=== PATIENT | male | born 1950 | race Caucasian/White ===

== ENCOUNTER 2017-07-15 18:55 | Inpatient (IN) | payer MEDICARE, OTHER ==
[2017-07-15] MEDS: ONDANSETRON 4 MG INJ IV (19:18)
[2017-07-15] MEDS: SOD CHLORIDE 0.9% 1,000 ML IV (19:20)
[2017-07-15] MEDS: DILTIAZEM 50 MG INJ IV (19:20)
[2017-07-15 19:35] LABS: ADD MAN DIFF? NO
[2017-07-15 19:37] LABS: WHITE BLOOD COUNT 7.8 10^3/ul (4.8-10.8)
[2017-07-15 19:37] LABS: BASOPHILS % 0.4 % (0.0-2.0); EOSINOPHILS % 0.1 % (0.0-7.0); HEMATOCRIT 35.7 % (42.0-52.0); HEMOGLOBIN 11.2 g/dl (14.0-18.0); LYMPHOCYTES # 0.5 10^3/ul (0.8-2.9); LYMPHOCYTES % 6.4 % (15.0-51.0); MEAN CORPUSCULAR HEMOGLOBIN 28.6 pg (29.0-33.0); MEAN CORPUSCULAR HGB CONC 31.4 g/dl (32.0-37.0); MEAN CORPUSCULAR VOLUME 91.3 fl (82.0-101.0); MEAN PLATELET VOLUME 11.2 fl (7.4-10.4); MONOCYTE # 0.6 10^3/ul (0.3-0.9); MONOCYTES % 7.6 % (0.0-11.0); NEUTROPHIL # 6.6 10^3/ul (1.6-7.5); NEUTROPHILS % 85.1 % (39.0-77.0); PLATELET COUNT 195 10^3/UL (140-415); RED BLOOD COUNT 3.91 10^6/ul (4.70-6.10)
[2017-07-15 19:59] LABS: ALANINE AMINOTRANSFERASE 42 IU/L (13-69); ALBUMIN 3.9 g/dl (3.3-4.9); ALBUMIN/GLOBULIN RATIO 1.34; ALKALINE PHOSPHATASE 101 IU/L (42-121); ANION GAP 15 (8-16); ASPARTATE AMINO TRANSFERASE 25 IU/L (15-46); BILIRUBIN,INDIRECT 0.7 mg/dl (0-1.1); BILIRUBIN,TOTAL 0.7 mg/dl (0.2-1.3); BLOOD UREA NITROGEN 43 mg/dl (7-20); CALCIUM 8.9 mg/dl (8.4-10.2); CARBON DIOXIDE 24 mmol/L (21-31); CHLORIDE 109 mmol/L (97-110); CREATININE 1.17 mg/dl (0.61-1.24); GLUCOSE 129 mg/dl (70-220); LIPASE 272 U/L (23-300); POTASSIUM 4.7 mmol/L (3.5-5.1); SODIUM 143 mmol/L (135-144); TOTAL PROTEIN 6.8 g/dl (6.1-8.1)
[2017-07-15] MEDS: DILTIAZEM-D5W 125MG/125ML DRIP 125 ML IV (20:01)
[2017-07-15 20:10] LABS: TROPONIN-I 0.049 ng/ml (0.00-0.12)
[2017-07-15 21:35] LABS: ADD UMIC YES; UR ASCORBIC ACID NEGATIVE (NEGATIVE); UR BILIRUBIN (Dip) NEGATIVE (NEGATIVE); UR BLOOD (Dip) NEGATIVE (NEGATIVE); UR CLARITY CLEAR (CLEAR); UR COLOR YELLOW (YELLOW); UR GLUCOSE (Dip) NEGATIVE (NEGATIVE); UR KETONES (Dip) NEGATIVE (NEGATIVE); UR LEUKOCYTE ESTERASE (Dip) 1+ Leu/ul (NEGATIVE); UR NITRITE (Dip) NEGATIVE (NEGATIVE); UR RBC 2 /HPF (0-5); UR SPECIFIC GRAVITY (Dip) 1.024 (1.003-1.030); UR TOTAL PROTEIN (Dip) 1+ mg/dl (NEGATIVE); UR UROBILINOGEN (Dip) NEGATIVE (NEGATIVE); UR WBC 10 /HPF (0-5)
[2017-07-15] MEDS: FUROSEMIDE 40 MG INJ IV (23:30)
[2017-07-16] MEDS ORDERED: NACL 0.9% 3 ML SYG IV (00:30)
[2017-07-16] MEDS ORDERED: GLUCOSE GEL 15 GRAM TUBE PO ×2 (00:30)
[2017-07-16] MEDS ORDERED: DEXTROSE 50% 50 ML SYRINGE IV ×2 (00:30)
[2017-07-16] MEDS ORDERED: GLUCOSE GEL 15 GRAM TUBE BUCCAL (00:30)
[2017-07-16] MEDS ORDERED: GLUCAGON 1 MG INJ IM (00:30)
[2017-07-16] MEDS: ACCU-CHEK XX (02:00)
[2017-07-16] MEDS: FUROSEMIDE 40 MG INJ IV ×2 (05:13→17:32)
[2017-07-16] MEDS: INSULIN ASPART [NOVOLOG] 3 ML PEN SC ×4 (08:00→20:12)
[2017-07-16] MEDS: BENAZEPRIL 40 MG TAB PO (08:16)
[2017-07-16] MEDS: AMLODIPINE 5 MG TAB PO (08:16)
[2017-07-16] MEDS: PRASUGREL HYDROCHLORIDE 10 MG TABLET PO (08:17)
[2017-07-16] MEDS: INSULIN GLARGINE [LANtus] 3 ML PEN SC (08:24)
[2017-07-16 15:29] LABS: HEMOGLOBIN A1C 5.5 % (0-5.9)
[2017-07-16 17:16] LABS: B-TYPE NATRIURETIC PEPTIDE 5920 PG/ML (0-125)
[2017-07-16 17:33] LABS: THYROID STIMULATING HORMONE 0.898 MIU/L (0.465-4.680)
[2017-07-16 18:28] LABS: TROPONIN-I 0.041 ng/ml (0.00-0.12)
[2017-07-16] MEDS: RIVAROXABAN 20 MG TABLET PO (18:30)
[2017-07-16] MEDS: METOPROLOL 25 MG TAB GTB (20:10)
[2017-07-17 01:29] LABS: TROPONIN-I 0.052 ng/ml (0.00-0.12)
[2017-07-17] MEDS: ACCU-CHEK XX (01:46)
[2017-07-17] MEDS: FUROSEMIDE 40 MG INJ IV (05:42)
[2017-07-17 06:19] LABS: ADD MAN DIFF? NO
[2017-07-17 06:24] LABS: WHITE BLOOD COUNT 6.1 10^3/ul (4.8-10.8)
[2017-07-17 06:24] LABS: ABNORMAL IP MESSAGE 1; BASOPHILS % 0.5 % (0.0-2.0); EOSINOPHILS # 0.2 10^3/ul (0.0-0.5); EOSINOPHILS % 3.1 % (0.0-7.0); HEMATOCRIT 36.2 % (42.0-52.0); HEMOGLOBIN 10.9 g/dl (14.0-18.0); LYMPHOCYTES # 0.6 10^3/ul (0.8-2.9); LYMPHOCYTES % 9.4 % (15.0-51.0); MEAN CORPUSCULAR HEMOGLOBIN 28.7 pg (29.0-33.0); MEAN CORPUSCULAR HGB CONC 30.1 g/dl (32.0-37.0); MEAN CORPUSCULAR VOLUME 95.3 fl (82.0-101.0); MEAN PLATELET VOLUME 10.9 fl (7.4-10.4); MONOCYTE # 0.6 10^3/ul (0.3-0.9); MONOCYTES % 9.1 % (0.0-11.0); NEUTROPHIL # 4.7 10^3/ul (1.6-7.5); NEUTROPHILS % 77.6 % (39.0-77.0); PLATELET COUNT 165 10^3/UL (140-415); POSITIVE DIFF @See below; RED CELL DISTRIBUTION WIDTH 15.9 % (11.5-14.5)
[2017-07-17 06:54] LABS: PHOSPHORUS 5.2 mg/dl (2.5-4.9)
[2017-07-17 06:54] LABS: MAGNESIUM 1.8 mg/dl (1.7-2.5)
[2017-07-17 06:55] LABS: ALANINE AMINOTRANSFERASE 38 IU/L (13-69); ALBUMIN 3.2 g/dl (3.3-4.9); ALBUMIN/GLOBULIN RATIO 1.18; ALKALINE PHOSPHATASE 78 IU/L (42-121); ANION GAP 12 (8-16); ASPARTATE AMINO TRANSFERASE 20 IU/L (15-46); BILIRUBIN,INDIRECT 0.3 mg/dl (0-1.1); BILIRUBIN,TOTAL 0.3 mg/dl (0.2-1.3); BLOOD UREA NITROGEN 40 mg/dl (7-20); CALCIUM 8.5 mg/dl (8.4-10.2); CARBON DIOXIDE 31 mmol/L (21-31); CHLORIDE 108 mmol/L (97-110); CREATININE 1.32 mg/dl (0.61-1.24); GLUCOSE 85 mg/dl (70-220); POTASSIUM 4.5 mmol/L (3.5-5.1); SODIUM 146 mmol/L (135-144); TOTAL PROTEIN 5.9 g/dl (6.1-8.1)
[2017-07-17 06:57] LABS: CHOL/HDL RATIO 6.5 RATIO; HDL CHOLESTEROL 29 mg/dl (30-78); LDL CHOLESTEROL,CALCULATED 145 mg/dl; TRIGLYCERIDES 86 mg/dl (0-149); TROPONIN-I 0.064 ng/ml (0.00-0.12)
[2017-07-17 06:57] LABS: CHOLESTEROL 191 mg/dl (100-200)
[2017-07-17 07:23] LABS: HEMOGLOBIN A1C 5.4 % (0-5.9)
[2017-07-17] MEDS: INSULIN ASPART [NOVOLOG] 3 ML PEN SC ×2 (08:00→12:00)
[2017-07-17] MEDS: PRASUGREL HYDROCHLORIDE 10 MG TABLET PO (08:25)
[2017-07-17] MEDS: METOPROLOL 25 MG TAB GTB (08:26)
[2017-07-17] MEDS: AMLODIPINE 5 MG TAB PO (08:26)
[2017-07-17] MEDS: BENAZEPRIL 40 MG TAB PO (08:26)
[2017-07-17] MEDS: INSULIN GLARGINE [LANtus] 3 ML PEN SC (08:32)
[2017-07-17 12:45] LABS: TROPONIN-I 0.035 ng/ml (0.00-0.12)
[2017-07-17] MEDS: METOPROLOL 25 MG TAB PO ×2 (12:47→13:00)
[2017-07-17] MEDS ORDERED: ATORVASTATIN 20 MG TAB PO (21:00)
== END 2017-07-17 16:10 | disposition home or self-care (01) | DRG 292 ==
LOC: MS4 22:56 → E/R 18:55
DX: I11.0 Hypertensive heart disease with heart failure (principal); I48.92 Unspecified atrial flutter; I48.0 Paroxysmal atrial fibrillation; I50.23 Acute on chronic systolic (congestive) heart failure; I25.10 Atherosclerotic heart disease of native coronary artery without angina pectoris; E11.9 Type 2 diabetes mellitus without complications; I25.5 Ischemic cardiomyopathy; E78.5 Hyperlipidemia, unspecified; I27.20 Pulmonary hypertension, unspecified; Z79.4 Long term (current) use of insulin; Z79.02 Long term (current) use of antithrombotics/antiplatelets; Z91.14 Patient's other noncompliance with medication regimen; Z95.5 Presence of coronary angioplasty implant and graft
CPT/HCPCS: 36415; 71045; 80053; 80061; 81001; 82962; 83036; 83690; 83735; 83880; 84100; 84443; 84484; 85025; 87086; 93005; 93306; 96365; 96366; 96375; 99285-25

== ENCOUNTER 2018-05-15 22:46 | Emergency (ER) | payer MEDICARE, OTHER ==
[2018-05-16] MEDS: HYDROCODONE/APAP (10/325) TAB PO (01:51)
== END 2018-05-16 05:10 | disposition home or self-care (01) ==
LOC: E/R 22:46
DX: S80.02XA Contusion of left knee, initial encounter (principal); I10 Essential (primary) hypertension; W18.39XA Other fall on same level, initial encounter; Y92.9 Unspecified place or not applicable; Z79.84 Long term (current) use of oral hypoglycemic drugs
CPT/HCPCS: 73562; 99283-25